=== PATIENT | female | born 1960 | race Caucasian/White ===

== ENCOUNTER → 2019-10-25 10:12 | Outpatient (BNVA) | payer MEDICARE, MEDICAID, SELFPAY | PROVIDERS: PCP Family Medicine; Visit Provider Nurse Practitioner | DX: G62.9 Polyneuropathy, unspecified (principal); R20.0 Anesthesia of skin; R20.2 Paresthesia of skin; F17.210 Nicotine dependence, cigarettes, uncomplicated | CPT/HCPCS: 99204; 99999 ==

== ENCOUNTER → 2019-12-06 11:45 | Outpatient (BNVA) | payer MEDICARE, MEDICAID, SELFPAY | PROVIDERS: PCP Family Medicine; Visit Provider Specialist | DX: G62.9 Polyneuropathy, unspecified (principal); R20.0 Anesthesia of skin; R20.2 Paresthesia of skin; M79.672 Pain in left foot; M79.671 Pain in right foot | CPT/HCPCS: 95909 ==

== ENCOUNTER → 2019-12-27 08:48 | Outpatient (BNVA) | payer MEDICARE, MEDICAID, SELFPAY | PROVIDERS: PCP Family Medicine; Visit Provider Internal Medicine Rheumatology | DX: M19.90 Unspecified osteoarthritis, unspecified site (principal); Z11.59 Encounter for screening for other viral diseases; Z79.899 Other long term (current) drug therapy; Z11.1 Encounter for screening for respiratory tuberculosis; G62.89 Other specified polyneuropathies; R76.8 Other specified abnormal immunological findings in serum; F17.210 Nicotine dependence, cigarettes, uncomplicated; Z72.89 Other problems related to lifestyle; E03.9 Hypothyroidism, unspecified; Z79.1 Long term (current) use of non-steroidal anti-inflammatories (NSAID) | CPT/HCPCS: 36415; 80076; 81001; 82306; 82565; 82570; 84156; 85025; 85651; 86140; 86160; 86480; 86704; 86803; 87340; 99204 ==

== ENCOUNTER 2020-01-11 13:12 | Outpatient (CLI) | payer MEDICARE, MEDICAID, SELFPAY ==
--- NOTE | 2020-01-11 13:00 | XR_ITS ---
WS: [id number] CERVICAL SPINE 3 VIEWS HISTORY: inflammatory arthritis COMPARISON: None available. Posterior alignment is normal. Small osteophyte projects posteriorly from C5 vertebral body. Disc spaces are well-maintained. There is very slight LEFT convex curvature of the cervical spine. Mild asymmetry of the lateral masses with the RIGHT C1-C2 joint spaces being narrowed as compared to the LEFT. Probably due to rotation of the patient. XR/XR cervical spine 3V* [id number] IMPRESSION: 1. Mild degenerative spondylitic changes. 2. No increased pannus formation at the odontoid process. 3. Mild LEFT convex curvature cervical spine.
--- NOTE | 2020-01-11 13:15 | XR_ITS ---
WS: [id number] RIGHT HAND: 3 VIEW(S) TECHNIQUE: PA, oblique and lateral. HISTORY: inflammatory arthritis COMPARISON: None available. No acute fracture or dislocation. Mild interphalangeal joint space narrowing. No metacarpal head erosions. No subluxations. There is ve ry mild narrowing of the first metacarpal joint with sclerosis and osteophyte formation. Mild subluxa tion of the first metacarpal. No erosions at the ulnar styloid. XR/XR hand RT min 3V* [id number] IMPRESSION: 1. Mild to moderate osteoarthritis at the first carpometacarpal joint. 2. No erosions at the metacarpal heads.
--- NOTE | 2020-01-11 13:30 | XR_ITS ---
WS: [id number] LEFT HAND: 3 VIEW(S) TECHNIQUE: PA, oblique and lateral. HISTORY: inflammatory arthritis COMPARISON: None available. No acute fracture or dislocation. Severe degenerative osteoarthritis at the first carpometacarpal joint. Sclerosis with partial subluxa tion at the joint space and fragmentation. No metacarpal head erosions. No osteopenia. XR/XR hand LT min 3V* [id number] IMPRESSION: 1. Severe osteoarthritis at the first carpometacarpal joint space. 2. No metacarpal head erosions.
--- NOTE | 2020-01-11 13:45 | XR_ITS ---
WS: [id number] LEFT FOOT: 3 VIEW(S) TECHNIQUE: AP, oblique and lateral. HISTORY: inflammatory arthritis COMPARISON: None available. No acute fracture or dislocation. Mild hallux valgus. Mild osteopenia. No definite erosions. No subluxation. There are hammertoe deform ities involving all toes. No soft tissue abnormality or bone destruction. XR/XR foot LT min 3V* [id number] IMPRESSION: 1. Hammertoe deformities and mild hallux valgus. 2. Mild osteopenia at the metatarsal heads but no erosions at this time.
--- NOTE | 2020-01-11 14:00 | XR_ITS ---
WS: [id number] RIGHT FOOT: 3 VIEW(S) TECHNIQUE: AP, oblique and lateral. HISTORY: inflammatory arthritis COMPARISON: None available. No acute fracture or dislocation. Mild osteopenia. No erosions are identified. Mild hammertoe deformities. Normal tarsal/metatarsal ali gnment. No soft tissue abnormality or bone destruction. XR/XR foot RT min 3V* [id number] IMPRESSION: 1. Mild osteopenia. No erosions identified. 2. Hammertoe deformities.
== END 2020-01-11 13:13 | disposition home or self-care (01) ==
PROVIDERS: PCP Family Medicine; Visit Provider Internal Medicine Rheumatology
DX: M20.41 Other hammer toe(s) (acquired), right foot (principal); M20.42 Other hammer toe(s) (acquired), left foot; M20.12 Hallux valgus (acquired), left foot; M19.042 Primary osteoarthritis, left hand; M19.041 Primary osteoarthritis, right hand; M19.90 Unspecified osteoarthritis, unspecified site
CPT/HCPCS: 72040; 73130; 73630

== ENCOUNTER → 2020-02-26 10:13 | Outpatient (BNVA) | payer MEDICARE, MEDICAID, SELFPAY | PROVIDERS: PCP Family Medicine; Visit Provider Internal Medicine Rheumatology | DX: M05.79 Rheumatoid arthritis with rheumatoid factor of multiple sites without organ or systems involvement (principal); Z79.899 Other long term (current) drug therapy; R76.0 Raised antibody titer; R76.8 Other specified abnormal immunological findings in serum; E06.3 Autoimmune thyroiditis; F17.210 Nicotine dependence, cigarettes, uncomplicated; Z79.52 Long term (current) use of systemic steroids; Z79.1 Long term (current) use of non-steroidal anti-inflammatories (NSAID) | CPT/HCPCS: 99214 ==